=== PATIENT | female | born 1980 | race Caucasian/White ===

== ENCOUNTER 2020-06-08 15:24 | Emergency (ER) | payer SELFPAY ==
[~2020-06-08] VITALS: Ht 154.9 cm; Wt 52.2 kg
[2020-06-08 15:43] VITALS: BP_SYST 123
[2020-06-08 17:42] VITALS: BP_SYST 123
== END 2020-06-08 17:43 | disposition home or self-care (01) ==
LOC: SED 15:24
DX: J38.7 Other diseases of larynx (principal); F12.90 Cannabis use, unspecified, uncomplicated
CPT/HCPCS: 99283

== ENCOUNTER 2024-05-23 08:51 | Emergency (ER) | payer SELFPAY ==
[~2024-05-23] VITALS: Ht 154.9 cm; Wt 49.9 kg
[2024-05-23 08:55] VITALS: BP_SYST 127; PULSE 84; RESP 18; TEMP 98.3; O2SAT 99
[2024-05-23 10:35] VITALS: BP_SYST 127; PULSE 84; RESP 18; TEMP 98.3; O2SAT 99
== END 2024-05-23 10:35 | disposition home or self-care (01) ==
LOC: SED 08:51
DX: T19.2XXA Foreign body in vulva and vagina, initial encounter (principal); F12.90 Cannabis use, unspecified, uncomplicated; F10.90 Alcohol use, unspecified, uncomplicated; Z98.890 Other specified postprocedural states; W44.8XXA Other foreign body entering into or through a natural orifice, initial encounter; Y90.9 Presence of alcohol in blood, level not specified
CPT/HCPCS: 99284